=== PATIENT | male | born 1960 | race Caucasian/White ===

== ENCOUNTER 2017-11-25 09:07 | Emergency (ER) | payer MEDICAID, MEDICARE, OTHER ==
[2017-11-25] MEDS: NS 0.9% 1000 ML* 1,000 ML IV ONE ×2 (09:30→10:42)
[2017-11-25] MEDS ORDERED: Phenytoin IV(*) 1,000 MG in NS 0.9% 250 ML* 180 ML IV ONE (09:32)
[2017-11-25 09:47] LABS: Hematocrit 43 % (42-52); Hemoglobin 14.7 g/dl (14.0-18.0); Mean Corpuscular HGB Conc 34 g/dl (31-36); Mean Corpuscular Hemoglobin 31 pg (27-31); Mean Corpuscular Volume 91 fL (80-94); Mean Platelet Volume 6.7 um3 (7.4-10.4); Platelet Count 292 10^3/ul (150-450); Red Blood Count 4.74 10^6/ul (4.0-5.4); Red Cell Distribution Width 16 % (10.5-15); White Blood Count 15.8 10^3/ul (3.5-10.8)
[2017-11-25 09:56] LABS: INR 0.95 (0.77-1.02)
[2017-11-25 10:08] LABS: EGFR Non-African American 82.7 (>60)
--- NOTE | 2017-11-25 10:09 | RAD ---
Indication: Seizures. Single frontal view of the chest performed at 0955 hours was reviewed. Comparison is made with previous exam dated February 18, 2015. No mediastinal shift is noted. Heart is of normal size and configuration. Lung martin appear clear. Endotracheal tube is at the level of T3-T4. IMPRESSION: NO ACTIVE CARDIOPULMONARY DISEASE IS NOTED.
[2017-11-25 10:14] LABS: ABS Basophils 0.1 10^3/ul (0-0.2); ABS Eosinophils 0 10^3/ul (0-0.6); ABS Lymphocytes 4.1 10^3/ul (1.0-4.8); ABS Monocytes 0.7 10^3/ul (0-0.8); ABS Neutrophils 10.9 10^3/ul (1.5-7.7)
[2017-11-25 10:17] LABS: Monocytes % 8 % (0-7)
[2017-11-25 10:18] LABS: Urine Appearance Clear; Urine Blood 1+ (Negative); Urine Color Yellow; Urine Ketones Trace (Negative); Urine Protein 1+(30 mg/dL) (Negative); Urine Specific Gravity 1.028 (1.010-1.030); Urine Urobilinogen Negative (Negative)
[2017-11-25] MEDS ORDERED: Midazolam* 1 MG/ML 10 ML VIAL (10 MG) IV ONE (10:49)
--- NOTE | 2017-11-25 11:11 | ED ---
Terrell Peguero Angela, scribed for Nehemias Napoles MD on 11/25/17 at 0924 . Neurological HPI - HPI Summary HPI Summary: This pt is a 57 y/o male presenting to [facility] via EMS for seizures. Per EMS, pt' s woke up at 08:00 this morning and the pt was already seizing. The amount of time the pt was seizing is unknown since the woke up to pt already seizing. administered the pt Ativan and EMS administered Versed 5 mg without any success. Per , pt went to bed at 21:00 last night. Pt has a glioblastoma and is on hospice care for terminal illness. Pt is followed up by Dr. Das. HPI IS LIMITED DUE TO LEVEL 5 CAVEAT - Pt is status epilepticus. - History of Current Complaint Stated Complaint: SEIZURE Time Seen by Provider: 11/25/17 09:10 Hx Obtained From: Family/Heavy Equipment Plumbing Supervisor - , EMS Onset/Duration: Sudden Onset, Still Present Timing: Sudden Onset Current Severity: Severe Seizure Severity: Status Epilepticus Neurological Deficit Location: Generalized Character: Other: - seizures Syncope Context: Unwitnessed, Witnessed, Loss of Consciousness: No Aggravating: Nothing Alleviating: Nothing Associated Signs and Symptoms: Positive: Seizure Related Hx: Seizure - Allergy/Home Medications Allergies/Adverse Reactions: Allergies Allergy/AdvReac Type Severity Reaction Status Date / Time Sulfa (Sulfonamide Allergy See Comment Verified 11/25/17 10:33 Antibiotics) Home Medications: Home Medications Dexamethasone TAB* [Decadron TAB*] 4 mg PO DAILY 11/25/17 [History Confirmed ] Lacosamide TAB* [Vimpat TAB*] 100 mg PO BID 11/25/17 [History Confirmed 11/25/17 ] Pantoprazole TAB (NF) [Protonix TAB (NF)] 40 mg PO DAILY 11/25/17 [History Confirmed 11/25/17] Potassium Chlor TAB* [Klor Con ER TAB*] 20 meq PO DAILY 11/25/17 [History Confirmed 11/25/17] amLODIPine TAB* [Norvasc 5 mg TAB*] 5 mg PO DAILY 11/25/17 [History Confirmed ] levETIRAcetam TAB* [Keppra TAB*] 2,000 mg PO BID 11/25/17 [History Confirmed ] PMH/Surg Hx/FS Hx/Imm Hx Endocrine/Hematology History: Reports: Other Endocrine/Hematological Disorders - lyme disease Denies: Hx Anticoagulant Therapy, Hx Diabetes, Hx Thyroid Disease Cardiovascular History: Reports: Hx Hypertension Denies: Hx Pacemaker/ICD Respiratory History: Denies: Hx Asthma, Hx Chronic Obstructive Pulmonary Disease (COPD) History: Reports: Hx Benign Prostatic Hyperplasia Denies: Hx Dialysis, Hx Renal Disease Sensory History: Reports: Hx Contacts or Glasses - pt did not bring glasses with him to the hospital Denies: Hx Hearing Aid Opthamlomology History: Reports: Hx Contacts or Glasses - pt did not bring glasses with him to the hospital Neurological History: Reports: Hx Seizures, Other Neuro Impairments/Disorders - pt feels he has new "short term memory loss" Denies: Hx Dementia - Short term memory loss Psychiatric History: Reports: Hx Depression Denies: Hx Panic Disorder, Hx Substance Abuse - Cancer History Cancer Type, Location and Year: MALIGNANT NEOPLASM BRAIN Hx Chemotherapy: No - NOT AT THIS TIME Hx Radiation Therapy: No - NOT AT THIS TIME - Surgical History Surgery Procedure, Year, and Place: HERNIA 1994 (groin). RIGHT TRICEP SURGERY 2003,. TONSILECTOMY AT AGE 16. CRANIOTOMY 2014 AT [facility] Anesthesia Reactions: No - Immunization History Date of Tetanus Vaccine: UNK Date of Influenza Vaccine: UNK Infectious Disease History: Reports: History Other Infectious Disease - Lyme Disease 2011 Denies: Hx Hepatitis, Hx Human Immunodeficiency Virus (HIV) - Family History Known Family History: Positive: Hypertension - Social History Alcohol Use: None Substance Use Type: Reports: None Smoking Status (MU): Former Smoker Type: Cigarettes Review of Systems - ROS Summary Review of Systems Summary: ROS IS LIMITED DUE TO LEVEL 5 CAVEAT - pt is in status epilepticus Negative: Fever Neurological: Other - POS: seizures, unresponsive All Other Systems Reviewed And Are Negative: No Physical Exam - Summary Physical Exam Summary: VITAL SIGNS: Reviewed. GENERAL: Patient is a well-developed and nourished male. HEAD AND FACE: No signs of trauma. No ecchymosis, hematomas or skull depressions. No sinus tenderness. EYES: PERRLA, EOMI x 2, No injected conjunctiva, no nystagmus. EARS: Hearing grossly intact. Ear canals and tympanic membranes are within normal limits. MOUTH: Oropharynx within normal limits. NECK: Supple, trachea is midline, no adenopathy, no JVD, no carotid bruit, no c- spine tenderness, neck with full ROM. CHEST: Symmetric, no tenderness at palpation LUNGS: Clear to auscultation bilaterally. No wheezing or crackles. CVS: Regular rate and rhythm, S1 and S2 present, no murmurs or gallops appreciated. ABDOMEN: Soft, non-tender. No signs of distention. No rebound no guarding, and no masses palpated. Bowel sounds are normal. EXTREMITIES: FROM in all major joints, no edema, no cyanosis or clubbing. NEURO: Pt is unresponsive. Pt continues with seizures. SKIN: Dry and warm Triage Information Reviewed: Yes Vital Signs On Initial Exam: Initial Vitals Pulse Pulse Ox 117 96 11/25/17 09:44 11/25/17 09:44 Vital Signs Reviewed: Yes Completion Of Physical Exam Limited Due To: Level 5 - pt is status epilepticus Diagnostics - Vital Signs Vital Signs Temp Pulse Resp BP Pulse Ox 11/25/17 11:00 122 24 107/80 95 11/25/17 10:50 112 35 114/79 94 11/25/17 10:44 106 33 132/97 89 11/25/17 10:40 103 35 94 11/25/17 10:30 96 25 99/66 97 11/25/17 10:20 99 17 107/80 94 11/25/17 10:11 107 17 97/74 94 11/25/17 10:08 110 16 82/65 94 11/25/17 10:00 126/107 11/25/17 09:55 98.8 F 118 26 133/91 98 11/25/17 09:44 117 96 - Laboratory Lab Results: Lab Results 11/25/17 11/25/17 11/25/17 Range/Units 09:35 09:35 09:35 WBC 15.8 H (3.5-10.8) 10^3/ul RBC 4.74 (4.0-5.4) 10^6/ul Hgb 14.7 (14.0-18.0) g/dl Hct 43 (42-52) % MCV 91 (80-94) fL MCH 31 (27-31) pg MCHC 34 (31-36) g/dl RDW 16 H (10.5-15) % Plt Count 292 (150-450) 10^3/ul MPV 6.7 L (7.4-10.4) um3 Neut % (Auto) Not Reportable Lymph % (Auto) Not Reportable [place] % (Auto) Not Reportable Eos % (Auto) Not Reportable Baso % (Auto) Not Reportable Absolute Neuts (auto) 10.9 H (1.5-7.7) 10^3/ul Absolute Lymphs (auto) 4.1 (1.0-4.8) 10^3/ul Absolute Monos (auto) 0.7 (0-0.8) 10^3/ul Absolute Eos (auto) 0 (0-0.6) 10^3/ul Absolute Basos (auto) 0.1 (0-0.2) 10^3/ul Absolute Nucleated RBC Not Reportable Immature Gran % 6 (0-9) % Neutrophils % 65 (38-83) % Band Neutrophils % 2 (0-8) % Lymphocytes % 15 L (25-47) % Reactive Lymphs % 6 (0-6) % Monocytes % 8 H (0-7) % Eosinophils % 0 (0-6) % Basophils % 0 (0-2) % Metamyelocytes % 2 (0-2) % Myelocytes % 2 H (0-1) % Nucleated RBC % Not Reportable Abs Neuts (Manual) 10.3 H (1.5-7.7) 10^3/ul Abs Lymphs (Manual) 2.4 (1.0-4.8) 10^3/ul Abs Monocytes (Manual) 1.3 H (0-0.8) 10^3/ul Absolute Eos (Manual) 0 (0-0.6) 10^3/ul Abs Basophils (Manual) 0 (0-0.2) 10^3/ul Normal RBC Morphology Normal (Normal) INR (Anticoag Therapy) 0.95 (0.77-1.02) APTT 27.8 (26.0-36.3) seconds Sodium 141 (139-145) mmol/L Potassium Pending Chloride 105 (101-111) mmol/L Carbon Dioxide 27 (22-32) mmol/L Anion Gap Pending BUN 16 (6-24) mg/dL Creatinine 0.94 (0.67-1.17) mg/dL Est GFR ( Amer) 106.4 (>60) Est GFR (Non-Af Amer) 82.7 (>60) BUN/Creatinine Ratio 17.0 (8-20) Glucose 166 H (70-100) mg/dL Lactic Acid (0.5-2.0) mmol/L Calcium 8.9 (8.6-10.3) mg/dL Magnesium 2.1 (1.9-2.7) mg/dL Total Bilirubin 0.70 (0.2-1.0) mg/dL AST Pending ALT 84 H (7-52) U/L Alkaline Phosphatase 85 (34-104) U/L Total Creatine Kinase 32 (10-223) U/L Total Protein 6.7 (6.4-8.9) g/dL Albumin 3.5 (3.2-5.2) g/dL Globulin 3.2 (2-4) g/dL Albumin/Globulin Ratio 1.1 (1-3) Urine Color Urine Appearance Urine pH (5-9) Ur Specific [place] (1.010-1.030) Urine Protein (Negative) Urine Ketones (Negative) Urine Blood (Negative) Urine Nitrate (Negative) Urine Bilirubin (Negative) Urine Urobilinogen (Negative) Ur Leukocyte Esterase (Negative) Urine WBC (Auto) (Absent) Urine RBC (Auto) (Absent) Urine Bacteria (Absent) Urine Glucose (Negative) 11/25/17 11/25/17 Range/Units 09:35 09:50 WBC (3.5-10.8) 10^3/ul RBC (4.0-5.4) 10^6/ul Hgb (14.0-18.0) g/dl Hct (42-52) % MCV (80-94) fL MCH (27-31) pg MCHC (31-36) g/dl RDW (10.5-15) % Plt Count (150-450) 10^3/ul MPV (7.4-10.4) um3 Neut % (Auto) Lymph % (Auto) [place] % (Auto) Eos % (Auto) Baso % (Auto) Absolute Neuts (auto) (1.5-7.7) 10^3/ul Absolute Lymphs (auto) (1.0-4.8) 10^3/ul Absolute Monos (auto) (0-0.8) 10^3/ul Absolute Eos (auto) (0-0.6) 10^3/ul Absolute Basos (auto) (0-0.2) 10^3/ul Absolute Nucleated RBC Immature Gran % (0-9) % Neutrophils % (38-83) % Band Neutrophils % (0-8) % Lymphocytes % (25-47) % Reactive Lymphs % (0-6) % Monocytes % (0-7) % Eosinophils % (0-6) % Basophils % (0-2) % Metamyelocytes % (0-2) % Myelocytes % (0-1) % Nucleated RBC % Abs Neuts (Manual) (1.5-7.7) 10^3/ul Abs Lymphs (Manual) (1.0-4.8) 10^3/ul Abs Monocytes (Manual) (0-0.8) 10^3/ul Absolute Eos (Manual) (0-0.6) 10^3/ul Abs Basophils (Manual) (0-0.2) 10^3/ul Normal RBC Morphology (Normal) INR (Anticoag Therapy) (0.77-1.02) APTT (26.0-36.3) seconds Sodium (139-145) mmol/L Potassium Chloride (101-111) mmol/L Carbon Dioxide (22-32) mmol/L Anion Gap BUN (6-24) mg/dL Creatinine (0.67-1.17) mg/dL Est GFR ( Amer) (>60) Est GFR (Non-Af Amer) (>60) BUN/Creatinine Ratio (8-20) Glucose (70-100) mg/dL Lactic Acid 3.3 H* (0.5-2.0) mmol/L Calcium (8.6-10.3) mg/dL Magnesium (1.9-2.7) mg/dL Total Bilirubin (0.2-1.0) mg/dL AST ALT (7-52) U/L Alkaline Phosphatase (34-104) U/L Total Creatine Kinase (10-223) U/L Total Protein (6.4-8.9) g/dL Albumin (3.2-5.2) g/dL Globulin (2-4) g/dL Albumin/Globulin Ratio (1-3) Urine Color Yellow Urine Appearance Clear Urine pH 5.0 (5-9) Ur Specific [place] 1.028 (1.010-1.030) Urine Protein 1+(30 mg/dl) A (Negative) Urine Ketones Trace A (Negative) Urine Blood 1+ A (Negative) Urine Nitrate Negative (Negative) Urine Bilirubin Negative (Negative) Urine Urobilinogen Negative (Negative) Ur Leukocyte Esterase Negative (Negative) Urine WBC (Auto) Trace(0-5/hpf) (Absent) Urine RBC (Auto) 1+(3-5/hpf) A (Absent) Urine Bacteria Absent (Absent) Urine Glucose Negative (Negative) Result Diagrams: 11/25/17 09:35 11/25/17 09:35 Lab Statement: Any lab studies that have been ordered have been reviewed, and results considered in the medical decision making process. - Radiology Chest XR Xray Interpretation: No Acute Changes - IMPRESSION: No active cardiopulmonary disease is noted. Dr. Napoles has reviewed this radiology report Radiology Interpretation Completed By: Radiologist - EKG 09:31 Cardiac Rate: Tachycardia EKG Rhythm: Sinus Tachycardia - at 114 bpm EKG Interpretation: No ST elevations. Re-Evaluation - Re-Evaluation First Eval Re-Evaluation Time: 09:13 Comment: Pt is status epilepticus, therefore I asked the if she wants me to intubate the pt. reports she wants me to do intubation, do CPR; she wants everything done for the pt even though she understands the pt has a terminal brain tumor. Second Eval Re-Evaluation Time: 09:18 Comment: Pt is being intubated. Third Eval Re-Evaluation Time: 09:41 Comment: Dr. Melendez in to see the pt. Fourth Eval Re-Evaluation Time: 10:21 Comment: I spoke to the pt's . I explained the condition and the poor prognosis of the pt. The wants the pt to be intubated and be transferred to a higher level of care. Course/Dx - Course Course Of Treatment: Procedure - Endotracheal Intubation. Permit was implied secondary to emergent situation. An LMA and bougie were placed within arm's reach. A Glidescope blade was inserted into the oropharynx at which time the vocal cords were visualized. A 7.5 Occitan endotracheal tube was inserted and visualized going through the vocal cords. The stylet was removed. Colorimetric change was visualized on the CO2 meter. Breath sounds were heard in both lung martin equally. The endotracheal tube was placed at 23 cm, measured at the teeth. Portable chest x-ray ordered for confirmation of tube level. Post intubation sedation ordered. Intubation was made at the first attempt. No complications were encountered. Assessment/Plan: This pt is a 57 y/o male presenting to [facility] via EMS for seizures. Per EMS, pt's woke up at 08:00 this morning and the pt was already seizing. The amount of time the pt was seizing is unknown since the woke up to pt already seizing. administered the pt Ativan and EMS administered Versed 5 mg without any success.Per , pt went to bed at 21:00 last night. Pt has a glioblastoma and is on hospice care for terminal illness. Pt is followed up by Dr. Das. HPI IS LIMITED DUE TO LEVEL 5 CAVEAT - Pt is status epilepticus. Initially because the pt continued to have seizures and was in status epilepticus, I had a long conversation with the pts of the pts condition, prognosis, and outcome if I intubate the pt since he has a terminal brain tumor. However, the is adamant and she wants everything done for the pt. Iris Sanchez, primary nurse, and Jade Gomes, charge nurse, are both present during this conversation with the . reports she wants everything done for the pt, including intubating the pt, and will reverse hospice care. Since the pt continues to be status epilepticus, I decided to intubate the pt, and since he is vomiting I need to protect the airway. Intubation was successful in the first attempt, please see intubation note. Test results without any significant abnormalities except for WBC of 15.8, glucose of 166, lactic acid of 3.3. Urinalysis shows trace ketones. Chest XR shows no active cardiopulmonary disease. The pt is now hemodynamically stable, the pt was given IV fluids. The pt was also given Dilantin. I consulted with Dr. Melendez, neurologist, who came and assessed the pt. Dr. Melendez also had a long conversation with the and still reports she wants everything done for pt. I discussed the case with Dr. Das, pts oncologist, and she agrees for the pt to be transferred to [facility] in [place]. I discussed the case Dr. Mathis, laser beam color scanner operator in the ICU at [facility], who accepted the pt for transfer. Pt is hemodynamically stable. Dx: status epilepticus, status post intubation, history of terminal brain cancer. - Diagnoses Provider Diagnoses: Status epilepticus, Intubation of airway performed without difficulty, History of terminal illness - Physician Notifications Discussed Care Of Patient With: Chantal Melendez Time Discussed With Above Provider: 09:30 Instructed by Provider To: Other - I discussed pt care with Dr. Melendez, neurologist, who will come see the pt in the ED. [10:14] I spoke with Dr. Das, oncologist, and she agrees to transfer the pt to a higher level of care. [10:26] I discussed case with Dr. Conn, neurologist at [facility], who has accepted the pt for transfer. - Critical Care Time Critical Care Time: 75-104 min Discharge - Sign-Out/Discharge Documenting (check all that apply): Discharge - transfer to [facility] - Discharge Plan Condition: Stable Disposition: TRANS HIGHER LVL OF CARE FAC Discharge Disposition Comment: [facility] Referrals: Darren JAIMES,Ildefonso Brooks [Primary Care Provider] - - Billing Disposition and Condition Condition: STABLE Disposition: EMTALA The documentation as recorded by the Terrell marie Angela accurately reflects the service I personally performed and the decisions made by me, Nehemias Napoles MD.
[2017-11-25] MEDS ORDERED: Midazolam* 1 MG/ML 5 ML VIAL (5 MG) SLOW PUSH ONE (11:13)
[2017-11-25] MEDS ORDERED: NS 0.9% 1000 ML* 1,000 ML IV SCH (11:30)
[2017-11-25] MEDS ORDERED: Propofol* 500 MG/50 ML BTL IV SCH (12:00)
[2017-11-25] MEDS ORDERED: Midazolam IV for DRIP* 100 MG in NS 0.9% 100 ML* 80 ML IV SCH (12:00)
[2017-11-25 14:02] VITALS: BP 97/74
--- NOTE | 2017-11-25 16:31 | ED ---
I, Martina Tejada, scribed for Nehemias Napoles MD on 11/25/17 at 1312 . Progress - Progress Note Progress Note: After the pt was arranged to be transferred to [facility] in [place], the decided she wants to keep the pt in [facility] for comfort care. Dr. Bedolla, government sales manager, came to the ED and assessed the pt, but now the and pts mother requested for the pt to be transferred to [facility] because they want everything done for the pt. Dr. Bedolla is not accepting the pt and is requesting for the pt to be transferred to [facility]. I discussed the case with the transfer center in [facility] and they accepted the pt for transfer again. Therefore the pt will be transferred to [facility]. Re-Evaluation - Re-Evaluation First Eval Re-Evaluation Time: 12:03 Comment: Pt's now wants the pt to stay in [facility] for comfort care. Second Eval Re-Evaluation Time: 13:00 Comment: I spoke with the transfer center again in [facility] and they accepted the pt again for transfer Course/Dx - Diagnoses Provider Diagnoses: Status epilepticus, Intubation of airway performed without difficulty, History of terminal illness - Provider Notifications Discussed Care Of Patient With: Transfer Center in [facility] Time Discussed With Above Provider: 13:00 Instructed by Provider To: Other - I discussed pt's case with the transfer center in [facility] and they accepted the pt for transfer again. - Critical Care Time Critical Care Time: 75-104 min Discharge - Sign-Out/Discharge Documenting (check all that apply): Discharge - transfer to [facility] - Discharge Plan Condition: Stable Disposition: TRANS HIGHER LVL OF CARE FAC Referrals: Darren JAIMES,Ildefonso Brooks [Primary Care Provider] - The documentation as recorded by the Terrell marie Angela accurately reflects the service I personally performed and the decisions made by me, Nehemias Napoles MD.
== END 2017-11-25 14:00 | disposition short-term general hospital (02) ==
LOC: ED 09:07
DX: G40.901 Epilepsy, unspecified, not intractable, with status epilepticus (principal); I10 Essential (primary) hypertension; A69.20 Lyme disease, unspecified; N40.0 Benign prostatic hyperplasia without lower urinary tract symptoms; C71.9 Malignant neoplasm of brain, unspecified; Z88.2 Allergy status to sulfonamides
CPT/HCPCS: 36415; 36600; 71045; 80053; 81003; 81015; 82550; 83605; 83735; 85025; 85610; 85730; 87086; 93005; 96360; 96374; 96375; 99285; J1165; J2250